=== PATIENT | male | born 1960 | race American Indian/Alaskan Native ===

== ENCOUNTER 2017-09-18 14:17 | Emergency (ER) | payer MEDICARE ==
[2017-09-18 14:26] VITALS: RESP 20
[2017-09-18] MEDS ORDERED: Atropine-Diphenoxylate 0.025-2.5 mg Tab PO STA (15:11)
--- NOTE | 2017-09-18 15:16 | C.PDOC ---
History Of Present Illness 56 year old male presents to ED for evaluation of diarrhea for the past 3 days. Pt reports LLQ abdominal cramping which has now resolved. Denies fever, or vomiting. Pt states, "I feel fine". VD X 3 DAYS. +LLQ CRAMPING, NOW RESOLVED. NO FEVER, VOMITING. CURRENTLY "I FEEL FINE" EXAM NONTOXIC ABD SOFT NT ND NO R/G REMAINDER NEG Time Seen by Provider: 09/18/17 14:36 Chief Complaint (Nursing): Abdominal Pain History Per: Patient History/Exam Limitations: no limitations Onset/Duration Of Symptoms: Days (3) Current Symptoms Are (Timing): Still Present Quality Of Discomfort: Cramping Associated Symptoms: Diarrhea. denies: Fever, Chills, Nausea, Vomiting, Loss Of Appetite, Back Pain, Chest Pain, Constipation, Urinary Symptoms Exacerbating Factors: None Alleviating Factors: None Recent travel outside of the [place]: No Additional History Per: Patient Past Medical History Reviewed: Historical Data, Nursing Documentation, Vital Signs Vital Signs: Last Vital Signs Temp 99.6 F 09/18/17 16:34 Pulse 99 H 09/18/17 16:34 Resp 20 09/18/17 16:34 BP 135/77 09/18/17 16:34 Pulse Ox 94 L 09/18/17 16:48 - Medical History PMH: Seizures Surgical History: Endoscopy - [facility] Procedures CLOSED ENDOSCOPIC BIOPSY OF LARGE INTESTINE (05/14/15) Family History: States: Unknown Family Hx - Social History Hx Tobacco Use: No Hx Alcohol Use: Yes Hx Substance Use: No - Immunization History Hx Tetanus Toxoid Vaccination: No Hx Influenza Vaccination: No Hx Pneumococcal Vaccination: No Review Of Systems Except As Marked, All Systems Reviewed And Found Negative. Constitutional: Negative for: Fever, Chills Cardiovascular: Negative for: Chest Pain, Palpitations Respiratory: Negative for: Cough, Shortness of Breath Gastrointestinal: Positive for: Diarrhea. Negative for: Nausea, Vomiting, Abdominal Pain, Constipation, Melena, Hematochezia Genitourinary: Negative for: Dysuria, Frequency, Hematuria Musculoskeletal: Negative for: Back Pain Neurological: Negative for: Headache, Dizziness Physical Exam - Physical Exam Appears: Non-toxic, No Acute Distress Skin: Normal Color, Warm, Dry Head: Atraumatic, Normacephalic Eye(s): bilateral: Normal Inspection Oral Mucosa: Moist Chest: Symmetrical Cardiovascular: Rhythm Regular, No Murmur Respiratory: Normal Breath Sounds, No Rales, No Rhonchi, No Wheezing Gastrointestinal/Abdominal: Normal Exam, Soft, No Tenderness, No Distention, No Guarding, No Rebound Back: No CVA Tenderness Extremity: Normal ROM Neurological/Psych: Oriented x3, Normal Speech ED Course And Treatment O2 Sat by Pulse Oximetry: 94 Reevaluation Time: 16:47 Reassessment Condition: Improved (NO RECUR DIARRHEA. WILL PO TRIAL) Medical Decision Making Medical Decision Making: Plan: * Lamotil * Bentyl * Reassess Disposition Counseled Patient/Family Regarding: Diagnosis - Disposition Referrals: YOUR,PMD [Other] Disposition: HOME/ ROUTINE Disposition Time: 17:15 Condition: GOOD Prescriptions: Atropine/Diphenoxylate [Lonox 0.025 MG-2.5 MG] 1 tab PO TID PRN #12 tab PRN Reason: Diarrhea Dicyclomine [Bentyl] 20 mg PO TID PRN #12 tab PRN Reason: Pain, Moderate (4-7) Instructions: Acute Diarrhea (ED) Forms: [employer] (Greenlandic) - Clinical Impression Clinical Impression: Diarrhea - Scribe Statement The provider has reviewed the documentation as recorded by the Scribe Clementina Holland All medical record entries made by the Scribe were at my direction and personally dictated by me. I have reviewed the chart and agree that the record accurately reflects my personal performance of the history, physical exam, medical decision making, and the department course for this patient. I have also personally directed, reviewed, and agree with the discharge instructions and disposition.
[2017-09-18] MEDS ORDERED: Atropine-Diphenoxylate 0.025-2.5 mg Tab ONE (15:18)
[2017-09-18 16:38] VITALS: BP 135/77; PULSE 99; TEMP 99.6
[2017-09-18 16:48] VITALS: O2SAT 94
== END 2017-09-18 17:33 | disposition home or self-care (01) ==
LOC: C.ER 14:17
DX: R19.7 Diarrhea, unspecified (principal)
CPT/HCPCS: 96372; 99284; J0500

== ENCOUNTER 2018-08-23 17:29 | Emergency (ER) | payer MEDICARE ==
[2018-08-23 17:40] VITALS: BP 132/85; PULSE 89; RESP 16; TEMP 97.4; O2SAT 97
--- NOTE | 2018-08-23 18:13 | C.PDOC ---
History Of Present Illness 57 year old male presents to the ED for evaluation of a pruritic rash to upper chest and bilateral shoulder area which began around 4 days ago. Patient denies known etiology, including new foods, soaps, detergents or clothing. Time Seen by Provider: 08/23/18 17:46 Chief Complaint (Nursing): Abnormal Skin Integrity History Per: Patient History/Exam Limitations: no limitations Onset/Duration Of Symptoms: Days (4) Current Symptoms Are (Timing): Still Present Additional History Per: Patient Past Medical History Reviewed: Historical Data, Nursing Documentation, Vital Signs Vital Signs: Last Vital Signs Temp 97.4 F L 08/23/18 17:34 Pulse 89 08/23/18 17:34 Resp 16 08/23/18 17:34 BP 132/85 08/23/18 17:34 Pulse Ox 97 08/23/18 17:34 - Medical History PMH: Seizures Surgical History: Endoscopy - [facility] Procedures CLOSED ENDOSCOPIC BIOPSY OF LARGE INTESTINE (05/14/15) Family History: States: Unknown Family Hx - Social History Hx Tobacco Use: No Hx Alcohol Use: Yes Hx Substance Use: No - Immunization History Hx Tetanus Toxoid Vaccination: No Hx Influenza Vaccination: No Hx Pneumococcal Vaccination: No Review Of Systems Skin: Positive for: Rash (bilateral shoulders and upper chest ) Physical Exam - Physical Exam Appears: Non-toxic, No Acute Distress Skin: Warm, Dry, Rash (sparse rash to bilateral shoulders and upper chest region, respecting the abdomen and lower extremities ) Head: Atraumatic, Normacephalic Eye(s): bilateral: Normal Inspection Oral Mucosa: Moist Neck: Supple Chest: Symmetrical, No Deformity, No Tenderness Cardiovascular: Rhythm Regular, No Murmur Respiratory: Normal Breath Sounds, No Rales, No Rhonchi, No Wheezing Extremity: Normal ROM Neurological/Psych: Oriented x3, Normal Speech, Normal Cognition ED Course And Treatment O2 Sat by Pulse Oximetry: 97 (on RA ) Pulse Ox Interpretation: Normal Progress Note: Benadryl PO, Pepcid PO, and Prednisone PO given. Medical Decision Making Medical Decision Making: skin eruption on upper shoulder areas, symmetrical, c/w allergic rxn improved with pepcid/prednisone/benadryl PO no cause determined @ home. Disposition Doctor Will See Patient In The: Office Counseled Patient/Family Regarding: Studies Performed, Diagnosis - Disposition Referrals: Paris Gonzalez MD [Non-Staff] - Disposition: HOME/ ROUTINE Disposition Time: 18:12 Condition: GOOD Additional Instructions: Medrol Dose pack, as directed (low dose steroids) Pepcid 20 mg @ night- protects stomach and excellent anti-histamine Benadryl 25-50 mg every 6 hours as needed for itching follow-up with your PMD as needed. Prescriptions: Methylprednisolone [Medrol Dose Pack (21 tabs)] 4 mg PO DAILY #21 mg Instructions: Itchy Skin Forms: [employer] ([place]odian) - Clinical Impression Clinical Impression: Skin irritation - Scribe Statement The provider has reviewed the documentation as recorded by the Scribe (Gavi Holland) Provider Attestation: All medical record entries made by the Scribe were at my direction and personally dictated by me. I have reviewed the chart and agree that the record accurately reflects my personal performance of the history, physical exam, medical decision making, and the department course for this patient. I have also personally directed, reviewed, and agree with the discharge instructions and disposition.
== END 2018-08-23 18:28 | disposition home or self-care (01) ==
LOC: C.ER 17:29
DX: L98.8 Other specified disorders of the skin and subcutaneous tissue (principal)

== ENCOUNTER 2018-11-16 17:35 | Emergency (ER) | payer MEDICARE ==
[2018-11-16 17:41] VITALS: BMI 25.1
--- NOTE | 2018-11-16 19:32 | C.PDOC ---
History Of Present Illness The patient is brought to the ED by EMS for evaluation after he was found publicly intoxicated prior to arrival. Patient admits to drinking earlier today and is requesting a place to sleep for the night. Patient is not offering any physical complaints at this time. Time Seen by Provider: 11/16/18 19:31 Chief Complaint (Nursing): Substance Abuse History Per: Patient, EMS History/Exam Limitations: intoxication Onset/Duration Of Symptoms: Hrs Current Symptoms Are (Timing): Still Present Suicide/Self Injury Attempted (Context): None Modifying Factor(s): Alcohol Severity: None Pain Scale Rating Of: 0 Associated Symptoms: denies: Suicidal Thoughts, Suicidal Plan Involuntary Hold By: None Recent travel outside of the [place]: No Additional History Per: Patient, EMS Past Medical History Reviewed: Historical Data, Nursing Documentation, Vital Signs Vital Signs: Last Vital Signs Temp 97.3 F L 11/16/18 17:46 Pulse 96 H 11/16/18 17:46 Resp 16 11/16/18 17:46 BP 104/66 11/16/18 17:46 Pulse Ox 95 11/16/18 17:46 - Medical History PMH: Seizures Surgical History: Endoscopy - [facility] Procedures CLOSED ENDOSCOPIC BIOPSY OF LARGE INTESTINE (05/14/15) Family History: States: Unknown Family Hx - Social History Hx Tobacco Use: No Hx Alcohol Use: Yes Hx Substance Use: Yes - Immunization History Hx Tetanus Toxoid Vaccination: No Hx Influenza Vaccination: No Hx Pneumococcal Vaccination: No Review Of Systems Constitutional: Negative for: Fever, Chills Cardiovascular: Negative for: Chest Pain, Palpitations Respiratory: Negative for: Cough, Shortness of Breath Gastrointestinal: Negative for: Nausea, Vomiting, Abdominal Pain Skin: Negative for: Rash, Lesions, Jaundice, Bruising Neurological: Negative for: Weakness, Numbness Psych: Positive for: Other (alcohol intoxication ) Physical Exam - Physical Exam Appears: Non-toxic, No Acute Distress, Other (visibly intoxicated ) Skin: Warm, Dry Head: Normacephalic Oral Mucosa: Moist, Other (alcohol on breath ) Neck: Supple Chest: Symmetrical, No Deformity Respiratory: No Accessory Muscle Use Extremity: Normal ROM Neurological/Psych: Other (arousable to touch and verbal stimuli ) ED Course And Treatment O2 Sat by Pulse Oximetry: 95 (on RA) Pulse Ox Interpretation: Normal Reevaluation Time: 05:36 Reassessment Condition: Improved Disposition Counseled Patient/Family Regarding: Studies Performed, Diagnosis, Need For Followup - Disposition Referrals: [facility] [Outside] Disposition: HOME/ ROUTINE Disposition Time: 19:31 Condition: FAIR Instructions: Alcohol Abuse and Alcoholism (DC) Forms: [employer] (Citizen Of [place]) - Clinical Impression Clinical Impression: Alcohol intoxication - Scribe Statement The provider has reviewed the documentation as recorded by the Scribe (Gavi Holland) Provider Attestation: All medical record entries made by the Scribe were at my direction and personally dictated by me. I have reviewed the chart and agree that the record accurately reflects my personal performance of the history, physical exam, medical decision making, and the department course for this patient. I have also personally directed, reviewed, and agree with the discharge instructions and disposition.
[2018-11-17 05:47] VITALS: BP 127/78; PULSE 78; RESP 17; TEMP 98; O2SAT 98
== END 2018-11-17 05:46 | disposition home or self-care (01) ==
LOC: C.ER 17:35
DX: F10.129 Alcohol abuse with intoxication, unspecified (principal); Y90.9 Presence of alcohol in blood, level not specified